=== PATIENT | male | born 1985 | race African-American/Black ===

== ENCOUNTER 2022-05-27 22:15 | Emergency (ER) | payer OTHER ==
[2022-05-27 22:35] VITALS: BP 135/87; PULSE 79; RESP 18; TEMP 98; BMI 28.9
== END 2022-05-27 23:00 | disposition home or self-care (01) ==
LOC: JER 22:15
DX: Z11.52 Encounter for screening for COVID-19 (principal)
CPT/HCPCS: 0241U-QW; 99281-25

== ENCOUNTER 2022-06-03 10:26 | Emergency (ER) | payer OTHER ==
[2022-06-03 10:32] VITALS: BP 120/76; PULSE 69; RESP 18; TEMP 97.8; BMI 28.0
== END 2022-06-03 11:48 | disposition home or self-care (01) ==
LOC: JERFT 10:26 → JER 10:26 → JERFT 11:48
DX: Z11.52 Encounter for screening for COVID-19 (principal)
CPT/HCPCS: 99281-25; C9803-CS; U0003; U0005